=== PATIENT | female | born 1975 ===

== ENCOUNTER 2017-12-04 08:09 | Day surgery (SDC) | payer BC ==
[2016-11-03 22:52] VITALS: BMI 27.4
[2017-12-04] MEDS ORDERED: Midazolam 2 MG/2 ML VIAL ONE (10:45)
[2017-12-04] MEDS ORDERED: Propofol 10 mg/ml Inj (20 ML) ONE (10:46)
[2017-12-04] MEDS ORDERED: HYDROmorphone 0.5 mg/0.5 ml ISec IVP PRN (11:28)
[2017-12-04] MEDS ORDERED: Dexamethasone 4 mg/1 ml IVP PRN (11:28)
--- NOTE | 2017-12-04 11:55 | PCM.SURG1 ---
Surgeon's Initial Post Op Note - Surgeon's Notes Surgeon: Cori Morin MD Hazardous Material Specialist: none Type of Anesthesia: General LMA Pre-Operative Diagnosis: Abnormal uterien bleeding, sympoatmic fibroid utuers Operative Findings: 10 week wizse uteurs, bilaterl ostia visluzed, sumbuocsal type myoma within cavity, polypoid tissue at cervical os, good hemostatis, no complications Post-Operative Diagnosis: same as above, Operation Performed: Hystersocpi [id number], deilation adn currettage Specimen/Specimens Removed: endometiral currettins, endocervical currettins, submsucoal myoma Estimated Blood Loss: EBL {In ML}: 5 Blood Products Given: N/A Drains Used: No Drains Post-Op Condition: Good Date of Surgery/Procedure: 12/04/17 Time of Surgery/Procedure: 10:30
[2017-12-04 12:20] VITALS: O2SAT 100
[2017-12-04 12:55] VITALS: BP 128/75; PULSE 72; RESP 18; TEMP 97.6
--- NOTE | 2017-12-05 02:54 | OP ---
Copied To: Cori Morin MD Attending MD: Cori Morin MD PROCEDURE DATE: 12/04/2017 SURGEON: Cori Morin MD [employer] OPERATOR: None. TYPE OF ANESTHESIA: General LMA. PREOPERATIVE DIAGNOSES: Abnormal uterine bleeding, symptomatic fibroid uterus. POSTOPERATIVE DIAGNOSIS: Abnormal uterine bleeding, symptomatic fibroid uterus. OPERATIVE FINDINGS: A 10-week size uterus. Bilateral ostia visualized. Submucosal myoma type from the cavity, polypoid tissue removed. Good hemostasis. No complication. OPERATIONS PERFORMED: Hysteroscopic myomectomy, dilation and curettage. ESTIMATED BLOOD LOSS: 5 mL. SPECIMENS: Endocervical curettings, endometrial curettings, submucosal myoma, polypoid tissue. BLOOD PRODUCTS: None. COMPLICATIONS: None, DESCRIPTION OF PROCEDURE: The patient was taken to the operating room where she was given general anesthesia. Once it was found to be adequate, she was placed on the operating table in dorsal supine position with legs supported using stirrups. The patient was then prepped and draped in the usual sterile fashion. A time-out confirmed correct patient and correct procedure. Bimanual exam was performed with the above-mentioned findings. Sandoval retractor was placed on the anterior and posterior fornix of the vagina. The cervix was adequately visualized. A single-tooth tenaculum was placed on the anterior lip of the cervix. Endocervical curetting was obtained with a Tres curette, sent to Pathology on [facility]. The uterus was then sounded. The cervix was sequentially dilated to allow for introduction of the 5-mm hysteroscope under direction visualization using normal saline as the distention media. [place] refer to operative findings. The MyoSure device was inserted. The myoma type lesion was removed carefully. Good hemostasis was noted. The MyoSure has been removed. Gentle curettage was done at 360 degrees with the polypoid tissue noted. All instruments were removed. There was good hemostasis at the tenaculum puncture site. At the end of the procedure, all needle, sponge, and instrument counts were noted and correct x2. The patient tolerated the procedure well and was transferred to the recovery room in stable condition. Cori Morin MD
== END 2017-12-04 13:59 | disposition home or self-care (01) ==
LOC: C.SDS 08:09
PROVIDERS: ATTEND Obstetrics & Gynecology
DX: D25.0 Submucous leiomyoma of uterus (principal); N93.9 Abnormal uterine and vaginal bleeding, unspecified
CPT/HCPCS: 58561; 88305; J1100; J1885; J2001; J2250; J2405; J2704; J3010